=== PATIENT | female | born 1985 | race Two or more races ===

== ENCOUNTER 2024-01-29 16:21 | Emergency (ER) | payer MEDICAID ==
[~2024-01-29] VITALS: Ht 162.6 cm; Wt 79.5 kg
[2024-01-29 17:26] LABS: Urine Bacteria None Seen /hpf (None Seen)
[2024-01-29 17:34] LABS: Urine Blood 1+ /uL (Negative); Urine Clarity Turbid (Clear); Urine Color Yellow (Yellow); Urine Mucus FEW (None Seen); Urine Protein, UAD TRACE (Negative); Urine Specific Gravity 1.026 (1.001-1.035); Urine Urobilinogen Normal (Negative); Urine WBC 13 /hpf (0 - 5); Urine pH 5.5 (5.0-9.0)
[2024-01-29] MEDS: KETOROLAC TROMETH 60MG/2ML VIAL IM ONE (17:45)
[2024-01-29 17:46] VITALS: BP 126/78; PULSE 71; RESP 20; TEMP 97.6; O2SAT 100
[2024-01-29] MEDS: HYDROcodone-ACET 10/325MG TAB PO ONE (17:46)
[2024-01-29] MEDS ORDERED: HYDR-4902 PO (18:24)
[2024-01-29] MEDS ORDERED: CIPR-173 PO (18:24)
[2024-01-29] MEDS ORDERED: IBUP-1455 PO (18:24)
[2024-01-29] MEDS: CIPROFLOXACIN HCL 500 MG TAB PO ONE (18:45)
== END 2024-01-29 18:48 | disposition home or self-care (01) ==
LOC: EDBD 16:21 → ER 16:21
DX: N12 Tubulo-interstitial nephritis, not specified as acute or chronic (principal)
CPT/HCPCS: 81001; 96372; 99283; J1885

== ENCOUNTER 2024-10-05 17:18 | Inpatient (IN) | payer MEDICAID ==
[~2024-10-05] VITALS: Ht 165.1 cm; Wt 79.7 kg
[~2024-10-05 17:18] MED LIST: CIPR-173 PO; HYDR-4902 PO; IBUP-1455 PO
[2024-10-05 18:07] LABS: Urine Bacteria None Seen /hpf (None Seen)
[2024-10-05 18:22] LABS: Urine Blood 3+ /uL (Negative); Urine Clarity Turbid (Clear); Urine Color Colorless (Yellow); Urine Protein, UAD TRACE (Negative); Urine Specific Gravity 1.015 (1.001-1.035); Urine Squamous Epithelial Cell FEW /hpf (<5); Urine Urobilinogen Normal (Negative); Urine WBC 20 /HPF (0-5)
--- NOTE | 2024-10-05 18:23 | ED.PDOC ---
History of Present Illness HPI Comments 39F presents to the ER w/ prior Hx of and Tubal Ligation which may be associated to the c/c of ABD pain. Pt reports on having RUQ pain which radiates to the back which started at 2300 last night. Pt notes that she is feeling bloated and is gassy. Family Hx of HTN. Denies chills, fever, N/V/D, SOB, CP or other associated symptom's, modifiers, or recent injuries or sick contact at this time. Chief Complaint: Abdominal Pain Time Seen by MD: 17:55 Reviewed Notes: Nurses Notes, Medications, Allergies Home Meds Active Scripts Hydrocodone-Acetaminophen (Hydrocodone Bitartrate/AC 5-325 mg) 1 Tab Tab, 1 TAB PO Q6HP PRN, #15 TAB Prov:ALTON OLIVEIRA PAC 01/29/24 Ibuprofen Micronized (Ibuprofen) 800 Mg Tab, 800 MG PO Q8HP PRN, #20 TAB Prov:ALTON OLIVEIRA PAC 01/29/24 Ciprofloxacin Hcl (Cipro) 500 Mg Tab, 1 TAB PO BID for 7 Days, #14 TAB Prov:ALTON OLIVEIRA PAC 01/29/24 Information Source: Patient Mode of Arrival: Ambulatory Severity: Moderate Timing: Hours Duration: Since onset, Hours Prehospital treatment: None Past Medical History PAST MEDICAL HISTORY: Denies Surgical History: , Tubal Ligation EQUIPMENT SERVICE ASSOCIATE History: No Pertinent EQUIPMENT SERVICE ASSOCIATE History Family History Family History: Reviewed,noncontributory to illness, Family hx of HTN Social History Smoker: Non-Smoker Alcohol: Denies ETOH Use Drugs: Denies Drug Use Lives In: Home Constitutional: denies: chills, diaphoresis, fatigue, fever, malaise, sweats, weakness, others EENTM: denies: blurred vision, double vision, ear bleeding, ear discharge, ear drainage, ear pain, ear ringing, eye pain, eye redness, hearing loss, mouth pain, mouth swelling, nasal discharge, nose bleeding, nose congestion, nose pain, photophobia, tearing, throat pain, throat swelling, voice changes, others Respiratory: denies: cough, hemoptysis, orthopnea, SOB at rest, shortness of breath, SOB with excertion, stridor, wheezing, others Cardiovascular: denies: chest pain, dizzy spells, diaphoresis, Dyspnea on exertion, edema, irregular heart beat, left arm pain, lightheadedness, palpitations, PND, syncope, others Gastrointestinal: reports: abdominal pain; denies: abdomen distended, blood str eaked bowels, constipated, diarrhea, dysphagia, difficulty swallowing, hematemesis, melena, nausea, poor appetite, poor fluid intake, rectal bleeding, rectal pain, vomiting, others Genitourinary: denies: abnormal vagina bleeding, burning, dyspareunia, dysuria, flank pain, frequency, hematuria, incontinence, pain, , vagina discharge, urgency, others Neurological: denies: dizziness, fainting, headache, left sided numbness, left sided weakness, numbness, paresthesia, pre-existing deficit, right sided numbness, right sided weakness, seizure, speech problems, tingling, tremors, weakness, others Musculoskeletal: denies: back pain, gout, joint pain, joint swelling, muscle pain, muscle stiffness, neck pain, others Integumetry: denies: bruises, change in color, change in hair/nails, dryness, laceration, lesions, lumps, rash, wounds, others Allergic/Immunocompromised: denies: Difficulty Healing, Frequent Infections, Hives, Itching, others Hematologic/Lymphatic: denies: anemia, blood clots, easy bleeding, easy bruising, swollen glands, others Endocrine: denies: excessive hunger, excessive sweating, excessive thirst, excessive urination, flushing, intolerance to cold, intolerance to heat, unexplained weight gain, unexplained weight loss, others Psychiatric: denies: anxiety, bipolar disorder, depression, hopeless, panic disorder, schizophrenia, sleepless, suicidal, others All Other Systems: Reviewed and Negative Physical Exam General Appearance: Moderate Distress HEENT: Normal ENT Inspection, Pharynx Normal, TMs Normal Neck: Full Range of Motion, Non-Tender, Normal, Normal Inspection Respiratory: Chest Non-Tender, Lungs Clear, No Accessory Muscle Use, No Respiratory Distress, Normal Breath Sounds Cardiovascular: No Edema, No JVD, No Murmur, No Gallop, Normal Peripheral Pulses, Regular Rate/Rhythm Breast Exam: Deferred Gastrointestinal: No Organomegaly, No Pulsatile Mass, Normal Bowel Sounds, RUQ, Soft, Tenderness Genitalia: Deferred Pelvic: Deferred Rectal: Deferred Extremities: No calf tenderness, Normal capillary refill, Normal inspection, Normal range of motion, Non-tender, No pedal edema Musculoskeletal : Apperance: Normal Neurologic: Alert, gas or water meter installer II-XII nml as Tested, No Motor Deficits, Normal Affect, Normal Mood, No Sensory Deficits Cerebellar Function: Normal Reflexes: Normal Skin: Dry, Normal Color, Warm Lymphatic: No Adenopathy Was a procedure done? Was a procedure done?: No Differential Dx Considerations may include: Cholelithiasis, gastritis, generalized weakness, UTI X-Ray, Labs, Meds, VS Vital Signs Date Time Temp Pulse Resp B/P (MAP) Pulse Ox O2 Delivery O2 Flow Rate FiO2 10/05/24 19:02 80 18 119/74 10/05/24 18:38 80 16 99 Room Air 10/05/24 18:38 98.4 80 16 119/74 (89) 99 98.4 10/05/24 17:38 97.9 83 20 132/90 (104) 97 Lab Test 10/05/24 18:14 10/05/24 17:35 Range/Units White Blood Count 9.4 4.4-10.8 10^3/uL Red Blood Count 4.42 4.0-5.20 10^6/uL Hemoglobin 12.5 12.2-16.2 g/dL Hematocrit 37.0 36.0-46.0 % Mean Corpuscular Volume 83.8 80.0-100.0 fL Mean Corpuscular Hemoglobin 28.2 28.0-32.0 pg Mean Corpuscular Hemoglobin Concent 33.7 32.0-36.0 g/dL Red Cell Distribution Width 15.3 H 11.8-14.3 % Platelet Count 281 140-450 10^3/uL Mean Platelet Volume 8.9 6.9-10.8 fL Neutrophils (%) (Auto) 62.6 37.0-80.0 % Lymphocytes (%) (Auto) 26.6 10.0-50.0 % Monocytes (%) (Auto) 7.2 0.0-12.0 % Eosinophils (%) (Auto) 2.8 0.0-7.0 % Basophils (%) (Auto) 0.8 0.0-2.0 % Neutrophils # (Auto) 5.9 1.6-8.6 10 ^3/uL Lymphocytes # (Auto) 2.5 0.4-5.4 10 ^3/uL Monocytes # (Auto) 0.7 0-1.3 10 ^3/uL Eosinophils # (Auto) 0.3 0-0.8 10 ^3/uL Basophils # (Auto) 0.1 0-0.2 10 ^3/uL Nucleated Red Blood Cells 0.0 % Sodium Level 140 136-145 mmol/L Potassium Level 3.9 3.5-5.1 mmol/L Chloride Level 108 H 98-107 mmol/L Carbon Dioxide Level 26 20-31 mmol/L Anion Gap 6 5-15 Blood Urea Nitrogen 10 9-23 mg/dL Creatinine 0.77 0.550-1.02 mg/dL Glomerular Filtration Rate Calc 100 >90 mL/min BUN/Creatinine Ratio 13.0 10.0-20.0 Serum Glucose 96 74-106 mg/dL Calcium Level 9.7 8.7-10.4 mg/dL Total Bilirubin 0.3 0.2-1.0 mg/dL Aspartate Amino Transferase (AST) 17 13-40 U/L Alanine Aminotransferase (ALT) 24 7-40 U/L Alkaline Phosphatase 115 46-116 U/L Total Protein 7.1 5.7-8.2 g/dL Albumin 4.3 3.2-4.8 g/dL Lipase 38 12-53 U/L Urine Color Colorless Yellow Urine Clarity Turbid H Clear Urine pH 6.0 5.0-9.0 Urine Specific [place] 1.015 1.001-1.035 Urine Protein Trace H Negative Urine Ketones Negative Negative Urine Blood 3+ H Negative /uL Urine Nitrite Negative Negative Urine Bilirubin Negative Negative Urine Urobilinogen Normal Negative mg/dL Urine Leukocyte Esterase 1+ Negative /uL Urine RBC 1328 0 - 4 /hpf Urine Microscopic WBC 20 H 0-5 /HPF Urine Squamous Epithelial Cells Few <5 /hpf Urine Bacteria None seen None Seen /hpf Urine Glucose Normal Normal mg/dL Current Medications Medications (Trade) Dose Ordered Sig/Terence Route Start Time Stop Time Status Last Admin Ondansetron HCl (Zofran) 4 mg ONCE ONCE IV 10/05/24 18:15 10/05/24 18:16 DC 10/05/24 19:01 Morphine Sulfate 4 mg ONCE ONCE IV 10/05/24 18:15 10/05/24 18:16 DC 10/05/24 19:02 Sodium Chloride 500 ml @ 500 mls/hr Q1H ONCE IVB 10/05/24 18:15 10/05/24 19:14 10/05/24 18:49 Pantoprazole Sodium (Protonix) 40 mg ONCE ONCE IV 10/05/24 18:15 10/05/24 18:16 DC 10/05/24 19:02 Ultrasound of the gallbladder shows:IMPRESSION: 1. Sludge in the gallbladder. No cholelithiasis. Negative ultrasound Manzanares's sign. 2. 13.8 cm liver with findings suggesting steatosis The urine test is positive for UTI The patient was given an IV Hep-Lock and given normal saline at a 500 cc bolus The patient was given morphine 4 mg IV push for the pain The patient was given Zofran 4 mg IV push for the nausea The patient was given Protonix 40 mg IV push. The chemistry panel is within normal limits The CBC is within normal limits At this time, the patient was being admitted Images Reviewed?: Images reviewed and evaluated by me Time of 1ST Reevaluation: 18:25 Reevaluation 1ST: Unchanged Patient Education/Counseling: Diagnosis, Treatment, Prognosis Family Education/Counseling: No Family Present Departure 1 Departure Time of Disposition: 19:05 Impression: Primary Impression: Intractable abdominal pain Additional Impression: Cholelithiasis Qualified Codes: K80.20 - Calculus of gallbladder without cholecystitis without obstruction Disposition: ADMITTED INPATIENT Admit to: Med Surg Condition: Fair Critical Care Note Critical Care Time?: No Stability Stability form required: Yes Unstable for transfer: ED Physician Assesment (Clinical assesment) Heart Score Heart Score: Heart Score Response (Comments) Value History N/A 0 EKG N/A 0 Age N/A 0 Risk Factors N/A 0 Troponin N/A 0 Total 0 I personally scribed for ROSETTE SHERIDAN MD ([email or web address]) on 10/05/24 at 18:23. Electronically submitted by Marciano Mendoza ([email or web address]). ROSETTE SHERIDAN MD Oct 05, 2024 18:23
[2024-10-05 18:30] LABS: Basophils # (auto) 0.1 10 ^3/uL (0-0.2); Basophils % (auto) 0.8 % (0.0-2.0); Eosinophils # (auto) 0.3 10 ^3/uL (0-0.8); Eosinophils % (auto) 2.8 % (0.0-7.0); Hemoglobin 12.5 g/dL (12.2-16.2); Lymphocytes # (auto) 2.5 10 ^3/uL (0.4-5.4); Lymphocytes % (auto) 26.6 % (10.0-50.0); Mean Corpuscular Hemoglobin 28.2 pg (28.0-32.0); Mean Corpuscular Hgb Conc. 33.7 g/dL (32.0-36.0); Mean Corpuscular Volume 83.8 fL (80.0-100.0); Monocytes # (auto) 0.7 10 ^3/uL (0-1.3); Monocytes % (auto) 7.2 % (0.0-12.0); Neutrophils # (auto) 5.9 10 ^3/uL (1.6-8.6); Neutrophils % (auto) 62.6 % (37.0-80.0); Platelet Count (auto) 281 10^3/uL (140-450); Red Blood Cells 4.42 10^6/uL (4.0-5.20); Red Cell Distribution Width 15.3 % (11.8-14.3); White Blood Cell 9.4 10^3/uL (4.4-10.8)
[2024-10-05 18:43] LABS: Alanine Aminotransferase 24 U/L (7-40); Albumin 4.3 g/dL (3.2-4.8); Alkaline Phosphatase 115 U/L (46-116); Anion Gap 6 (5-15); Aspartate Aminotransferase 17 U/L (13-40); Blood Urea Nitrogen 10 mg/dL (9-23); Calcium 9.7 mg/dL (8.7-10.4); Carbon Dioxide 26 mmol/L (20-31); Glucose 96 mg/dL (74-106); Lipase 38 U/L (12-53); Potassium 3.9 mmol/L (3.5-5.1); Sodium 140 mmol/L (136-145)
[2024-10-05 18:44] LABS: Total Protein 7.1 g/dL (5.7-8.2)
[2024-10-05 18:45] LABS: Bilirubin, Total 0.3 mg/dL (0.2-1.0); Chloride 108 mmol/L (98-107)
--- NOTE | 2024-10-05 18:48 | DVH ---
INDICATION: pain TECHNIQUE: Multiple real-time sonographic images of the abdomen were obtained. COMPARISON: None FINDINGS: Slight increased echogenicity to the hepatic parenchyma suggesting steatosis. The liver emma sures 13.8 cm. No intrahepatic biliary ductal dilatation is noted. The gallbladder wall measures 0.17 cm and is unremarkable. No gallstones. Small amount of sludge i n the gallbladder. sludge is seen. The common duct measures 0.42 cm and is unremarkable. No pericho lecystic fluid is noted. Negative ultrasound Manzanares's sign The right kidney measures 10.9 cm. No hydronephrosis. The pancreas appears normal The visualized portions of the IVC and aorta are grossly unremarkable. IMPRESSION: 1. Sludge in the gallbladder. No cholelithiasis. Negative ultrasound Manzanares's sign. 2. 13.8 cm liver with findings suggesting steatosis
[2024-10-05] MEDS: SODIUM CHLORIDE 0.9% 500 ML IVB ONE (18:49)
[2024-10-05] MEDS: ONDANSETRON HCL 4 MG/2 ML VIAL IV ONE (19:01)
[2024-10-05] MEDS: PANTOPRAZOLE 40 MG/10 ML VIAL INJ IV ONE (19:02)
[2024-10-05] MEDS: MORPHINE SULFATE 4 MG/ML SYR/VIAL IV ONE (19:02)
--- NOTE | 2024-10-05 21:47 | DVHHPRES ---
History of Present Illness Resident Creating Document: JOSEPH RAYA RESIDENT History of Present Illness 39-year-old female with no significant past medical history came in due to abdominal pain. According to the patient, pain has been ongoing since yesterday afternoon and radiating to her back, pain is intermittent, burning and 8/10 at onset. There is generalized abdominal tenderness to palpation, most prominent in the right flank. Pain is worsened with deep breathing and improves with applying mechanical pressure. Pain is relieved with Advil. Denies having similar symptoms in the past. On review of systems patient is complaining of fatigue, shortness of breath, urinary frequency. UA showed 3+ blood, 1+ leukocyte esterase. CT abdomen pelvis showed 4-5 mm calculus in the pelvis on the left may represent a distal left ureteral calculus, appendix visualized and appears normal. Past Medical History denies Past Surgical History section Smoke: No ALCOHOL: none Drugs: None Lives: with Family Review of Systems Constitutional: Yes: Malaise; No: Fever, Chills, Sweats, Weakness, Other Eyes: No: Pain, Vision change, Conjunctivae inflammation, Eyelid inflammation, Other, Redness ENT: Throat pain; No: Ear pain, Ear discharge, Nose pain, Nose discharge, Nose congestion, Mouth pain, Mouth swelling, Throat swelling, Other Respiratory: Shortness of breath; No: Cough, Dry, SOB with excertion, Wheezing, Hemoptysis, Pleuritic Pain, Sputum, Wheezing, Other Cardiovascular: No: Chest Pain, Palpitations, Orthopnea, Paroxysmal Noc. Dyspnea, Edema, Lt Headedness, Other Gastrointestinal: No: Nausea, Vomiting, Abdominal Pain, Diarrhea, Constipation, Melena, Hematochezia, Other Genitourinary: No Dysuria; Frequency; No Incontinence, No Hematuria, No Retention, No Other Musculoskeletal: No: other, neck pain, shoulder pain, arm pain, back pain, hand pain, leg pain, foot pain Skin: No: Rash, Lesions, Jaundice, Bruising, Other Neurological: No: Weakness, Numbness, Incoordination, Change in speech, Confusion, Seizures, Other Allergies: Coded Allergies: NO KNOWN ALLERGIES (Unverified , 10/05/24) Exam Vital Signs Vital Signs Date Time Temp Pulse Resp B/P (MAP) Pulse Ox O2 Delivery O2 Flow Rate FiO2 10/05/24 20:38 98.2 87 18 118/70 (86) 100 98.2 10/05/24 18:38 Room Air General Appearance: Alert, Oriented X3, Cooperative, No acute distress HEENT: Atraumatic, PERRLA, EOMI, Mucous membr. moist/pink Respiratory: Clear to auscultation, Normal air movement Cardiovascular: Regular rate, Normal S1, Normal S2 Abdominal: Normal bowel sounds, Soft, Other (Tenderness to palpation) Extremities: No clubbing, No edema Skin: No rashes, No breakdown, No significant lesion Neuro: Normal gait, Normal speech, Strength at 5/5 X4 ext, Normal tone, Sensation intact Psych/Mental Status: Mental status NL, Mood NL Labs/Xrays Labs Test 10/05/24 18:14 10/05/24 17:35 Range/Units White Blood Count 9.4 4.4-10.8 10^3/uL Red Blood Count 4.42 4.0-5.20 10^6/uL Hemoglobin 12.5 12.2-16.2 g/dL Hematocrit 37.0 36.0-46.0 % Mean Corpuscular Volume 83.8 80.0-100.0 fL Mean Corpuscular Hemoglobin 28.2 28.0-32.0 pg Mean Corpuscular Hemoglobin Concent 33.7 32.0-36.0 g/dL Red Cell Distribution Width 15.3 H 11.8-14.3 % Platelet Count 281 140-450 10^3/uL Mean Platelet Volume 8.9 6.9-10.8 fL Neutrophils (%) (Auto) 62.6 37.0-80.0 % Lymphocytes (%) (Auto) 26.6 10.0-50.0 % Monocytes (%) (Auto) 7.2 0.0-12.0 % Eosinophils (%) (Auto) 2.8 0.0-7.0 % Basophils (%) (Auto) 0.8 0.0-2.0 % Neutrophils # (Auto) 5.9 1.6-8.6 10 ^3/uL Lymphocytes # (Auto) 2.5 0.4-5.4 10 ^3/uL Monocytes # (Auto) 0.7 0-1.3 10 ^3/uL Eosinophils # (Auto) 0.3 0-0.8 10 ^3/uL Basophils # (Auto) 0.1 0-0.2 10 ^3/uL Nucleated Red Blood Cells 0.0 % Sodium Level 140 136-145 mmol/L Potassium Level 3.9 3.5-5.1 mmol/L Chloride Level 108 H 98-107 mmol/L Carbon Dioxide Level 26 20-31 mmol/L Anion Gap 6 5-15 Blood Urea Nitrogen 10 9-23 mg/dL Creatinine 0.77 0.550-1.02 mg/dL Glomerular Filtration Rate Calc 100 >90 mL/min BUN/Creatinine Ratio 13.0 10.0-20.0 Serum Glucose 96 74-106 mg/dL Calcium Level 9.7 8.7-10.4 mg/dL Total Bilirubin 0.3 0.2-1.0 mg/dL Aspartate Amino Transferase (AST) 17 13-40 U/L Alanine Aminotransferase (ALT) 24 7-40 U/L Alkaline Phosphatase 115 46-116 U/L Total Protein 7.1 5.7-8.2 g/dL Albumin 4.3 3.2-4.8 g/dL Lipase 38 12-53 U/L Urine Color Colorless Yellow Urine Clarity Turbid H Clear Urine pH 6.0 5.0-9.0 Urine Specific [place] 1.015 1.001-1.035 Urine Protein Trace H Negative Urine Ketones Negative Negative Urine Blood 3+ H Negative /uL Urine Nitrite Negative Negative Urine Bilirubin Negative Negative Urine Urobilinogen Normal Negative mg/dL Urine Leukocyte Esterase 1+ Negative /uL Urine RBC 1328 0 - 4 /hpf Urine Microscopic WBC 20 H 0-5 /HPF Urine Squamous Epithelial Cells Few <5 /hpf Urine Bacteria None seen None Seen /hpf Urine Glucose Normal Normal mg/dL Assessment/Plan Assessment/Plan 4-5 mm distal left ureteral calculus Acute complicated UTI - CT abdomen pelvis: Appendix visualized and appears normal. No right renal calculi or ureteral calculus. No calculus in the bladder on the right. 4-5 mm calculus in the pelvis on the left may represent a distal left ureteral calculus refer to series 2 image 87. This may represent a calcified phlebolith. - IV ceftriaxone - IV NS 500 mL bolus, IV NS 125 cc/hour - IV mannitol - tamsulosin 0.4 mg - strain urine - IV Zofran 4 mg Hepatic steatosis - abdominal USG: Sludge in the gallbladder. No cholelithiasis. Negative ultrasound Manzanares sign. 13.8 cm liver with findings suggesting steatosis. - monitor PUD prophylaxis: protonix 40mg DVT prophylaxis: SCDs Goals of care: Full code, discussed for >16 minutes on 10/05/2024 Plan discussed with patient Plan discussed with Dr. Marcial Plan discussed with: Patient, Spouse, Other (RN) Date of Service: Oct 05, 2024 Billing Provider: SANTINO MARCIAL MD Common Visit Codes: 99072-[id number] INP/OBS CARE (HIGH) JOSEPH RAYA RESIDENT Oct 05, 2024 21:47 SANTINO MARCIAL MD Oct 07, 2024 00:29
[2024-10-05 21:58] VITALS: BP 110/76; PULSE 64; RESP 18; TEMP 98.9; O2SAT 100
[2024-10-05 22:32] VITALS: BP 117/76; PULSE 64; PULSE 69; RESP 18; TEMP 97.8; O2SAT 100
[2024-10-05 22:47] LABS: INR 1.01 (0.9-1.15); Prothrombin Time 10.7 sec (9.3-11.8)
--- NOTE | 2024-10-05 22:48 | DVH ---
CHEST RADIOGRAPH Indication: sob Technique: Single frontal view of the chest was obtained Comparison: None FINDINGS: Lines and Tubes: None Lungs: Clear Pleura: No effusion. No pneumothorax. Cardiomediastinal contours: Unremarkable Bones: Unremarkable IMPRESSION: Clear lungs.
--- NOTE | 2024-10-05 23:03 | DVH ---
Exam: CT CT AB PEL WO CON-NO ORAL OR IV History: nephrolithiasis vs appendicitis Comparison Study: None available at time of dictation. TECHNIQUE: Multidetector CT of the abdomen was performed from lung bases to pubic symphysis. Imaging was performed without IV contrast. Axial, coronal and sagittal multiplanar reformats were obtained fr om the axial data set by the technologist. Radiation Dose Information: CT Dose: CTDI volume is 9.46 mGy. Dose-length product is 577.44 mGy*cm FINDINGS: Evaluation of solid organs is limited due to lack of intravenous contrast use. Findings: Lung Bases: No acute or significant lung base finding. Normal heart size. No pleural or pericardial effusion. Liver: The liver is normal in size. No focal lesions. Gallbladder and Biliary Tree: Questionable small gallstone (8-9mm) in the neck of the gallbladder ref erence series 2, image 31 Spleen: Unremarkable Pancreas: The pancreas is grossly normal in appearance. Adrenal Glands: Unremarkable Kidneys: Kidneys are grossly normal without calculi or hydronephrosis. Bladder: Grossly unremarkable for degree of distention. Bowel: The stomach is grossly normal in appearance. Small bowel and colon are normal in caliber and d istribution. The appendix is visualized; and appears normal Ascites: Absent Lymphadenopathy: No mesenteric, retroperitoneal or periportal lymphadenopathy. Abdominal Wall and Mesentery: Unremarkable. Vasculature: The visualized abdominal aorta is normal in size and caliber. Evaluation of abdominal a nd pelvic vessels is limited due to lack of intravenous contrast. Pelvic Organs: Unremarkable Musculoskeletal: No aggressive focal bony lesions, acute fractures or dislocation. Soft tissues: Unremarkable IMPRESSION: 1. Appendix visualized and appears normal 2. No right renal calculi or ureteral calculus. No calculus in the bladder on the right. 3. 4-5 mm calculus in the pelvis on the left may represent a distal left ureteral calculus refer to jv barajas 2 image 87. This may represent a calcified phlebolith. 4. Radiation optimization: All CT scans at this facility use at least one of these dose optimization techniques: automated exposure control mA and/or kV adjustment per patient size (includes targeted e xams where dose is matched to clinical indication) or iterative reconstruction.
[2024-10-05 23:24] LABS: Amphetamine Screen, Urine Neg (NEGATIVE); Barbiturate Scree,Urine Neg (NEGATIVE); Opiate Scree,Urine Neg (NEGATIVE); Phencyclidine Screen, Urine Neg (NEGATIVE)
[2024-10-05 23:25] LABS: Benzodiazephine Screen, Urine Neg (NEGATIVE); Cannabinoid Screen, Urine Neg (NEGATIVE); Cocaine Screen, Urine Neg (NEGATIVE)
[2024-10-06] VITALS (7 sets, daily range): BP systolic 111–136; BP diastolic 66–82; PULSE 69–94; RESP 14–20; TEMP 97.8–98.1; O2SAT 94–100
[2024-10-06] MEDS: TAMSULOSIN HYDROCHLORIDE 0.4 MG CAP PO ONE (01:12)
[2024-10-06] MEDS: SODIUM CHLORIDE 0.9% 1,000 ML IV SCH (01:12)
[2024-10-06] MEDS: MANNITOL FTV 25% 12.5 GM/50 ML 50 ML IV ONE (01:12)
[2024-10-06] MEDS: cefTRIAXone 1GM/50ML D5W 50 ML IV ONE (01:27)
[2024-10-06] MEDS: ACETAMINOPHEN 325 MG TAB PO PRN (10:15)
[2024-10-06] MEDS: PANTOPRAZOLE 40 MG/10 ML VIAL INJ IV SCH (10:15)
[2024-10-06] MEDS: IBUPROFEN 800 MG TAB PO PRN (16:33)
[2024-10-06] MEDS: TAMSULOSIN HYDROCHLORIDE 0.4 MG CAP PO SCH (16:33)
--- NOTE | 2024-10-06 17:51 | DVHINCON2 ---
Date of service: Oct 06, 2024 Referring Physician Nathaly Reason for Consultation possible ureteral stone History of Present Illness c/o abdominal and right flank pain on admission;CT says possible stone vs phlebolith left pelvis;denies prior stones,hematuria, UTI 6 months ago Past Medical History reviewed Past Surgical History reviewed Family History: Patient reports no known family medical history. Allergies: Coded Allergies: NO KNOWN ALLERGIES (Unverified , 10/05/24) Home Meds Active Scripts Hydrocodone-Acetaminophen (Hydrocodone Bitartrate/AC 5-325 mg) 1 Tab Tab, 1 TAB PO Q6HP PRN, #15 TAB Prov:ALTON OLIVEIRA PAC 01/29/24 Ibuprofen Micronized (Ibuprofen) 800 Mg Tab, 800 MG PO Q8HP PRN, #20 TAB Prov:ALTON OLIVEIRA PAC 01/29/24 Ciprofloxacin Hcl (Cipro) 500 Mg Tab, 1 TAB PO BID for 7 Days, #14 TAB Prov:ALTON OLIVEIRA PAC 01/29/24 Current Medications Current Medications Medications (Trade) Dose Ordered Sig/Terence Route PRN Reason Start Time Stop Time Status Last Admin Acetaminophen (Tylenol Tablet) 650 mg Q6HP PRN PO PAIN SCALE 1-3 OR TEMP>100.4 10/05/24 21:45 10/06/24 10:15 Pantoprazole Sodium (Protonix) 40 mg DAILY IV 10/06/24 10:00 10/06/24 10:15 Sodium Chloride 1,000 ml @ 125 mls/hr Q8H IV 10/05/24 22:30 10/06/24 10:30 Ceftriaxone Sodium 50 ml @ 100 mls/hr DAILY@0000 IV 10/07/24 00:00 Tamsulosin HCl (Flomax) 0.4 mg QPM PO 10/06/24 18:00 10/06/24 16:33 Ibuprofen (Motrin Tablet) 800 mg Q8HP PRN PO MODERATE PAIN (4-6 PAIN SCALE) 10/06/24 16:30 10/06/24 16:33 Review of Systems reviewed Vital Signs Vital Signs Date Time Temp Pulse Resp B/P (MAP) Pulse Ox O2 Delivery O2 Flow Rate FiO2 10/06/24 17:33 98.0 10/06/24 17:00 81 19 120/76 (91) 98 10/06/24 07:30 Room Air* 0 21 Labs/Diagnostic Data Labs Test 10/05/24 18:14 10/05/24 17:35 Range/Units White Blood Count 9.4 4.4-10.8 10^3/uL Red Blood Count 4.42 4.0-5.20 10^6/uL Hemoglobin 12.5 12.2-16.2 g/dL Hematocrit 37.0 36.0-46.0 % Mean Corpuscular Volume 83.8 80.0-100.0 fL Mean Corpuscular Hemoglobin 28.2 28.0-32.0 pg Mean Corpuscular Hemoglobin Concent 33.7 32.0-36.0 g/dL Red Cell Distribution Width 15.3 H 11.8-14.3 % Platelet Count 281 140-450 10^3/uL Mean Platelet Volume 8.9 6.9-10.8 fL Neutrophils (%) (Auto) 62.6 37.0-80.0 % Lymphocytes (%) (Auto) 26.6 10.0-50.0 % Monocytes (%) (Auto) 7.2 0.0-12.0 % Eosinophils (%) (Auto) 2.8 0.0-7.0 % Basophils (%) (Auto) 0.8 0.0-2.0 % Neutrophils # (Auto) 5.9 1.6-8.6 10 ^3/uL Lymphocytes # (Auto) 2.5 0.4-5.4 10 ^3/uL Monocytes # (Auto) 0.7 0-1.3 10 ^3/uL Eosinophils # (Auto) 0.3 0-0.8 10 ^3/uL Basophils # (Auto) 0.1 0-0.2 10 ^3/uL Nucleated Red Blood Cells 0.0 % Prothrombin Time 10.7 9.3-11.8 sec Prothrombin Time INR 1.01 0.9-1.15 Sodium Level 140 136-145 mmol/L Potassium Level 3.9 3.5-5.1 mmol/L Chloride Level 108 H 98-107 mmol/L Carbon Dioxide Level 26 20-31 mmol/L Anion Gap 6 5-15 Blood Urea Nitrogen 10 9-23 mg/dL Creatinine 0.77 0.550-1.02 mg/dL Glomerular Filtration Rate Calc 100 >90 mL/min BUN/Creatinine Ratio 13.0 10.0-20.0 Serum Glucose 96 74-106 mg/dL Calcium Level 9.7 8.7-10.4 mg/dL Total Bilirubin 0.3 0.2-1.0 mg/dL Aspartate Amino Transferase (AST) 17 13-40 U/L Alanine Aminotransferase (ALT) 24 7-40 U/L Alkaline Phosphatase 115 46-116 U/L Total Protein 7.1 5.7-8.2 g/dL Albumin 4.3 3.2-4.8 g/dL Lipase 38 12-53 U/L Urine Color Colorless Yellow Urine Clarity Turbid H Clear Urine pH 6.0 5.0-9.0 Urine Specific [place] 1.015 1.001-1.035 Urine Protein Trace H Negative Urine Ketones Negative Negative Urine Blood 3+ H Negative /uL Urine Nitrite Negative Negative Urine Bilirubin Negative Negative Urine Urobilinogen Normal Negative mg/dL Urine Leukocyte Esterase 1+ Negative /uL Urine RBC 1328 0 - 4 /hpf Urine Microscopic WBC 20 H 0-5 /HPF Urine Squamous Epithelial Cells Few <5 /hpf Urine Bacteria None seen None Seen /hpf Urine Glucose Normal Normal mg/dL Urine Opiates Screen Neg NEGATIVE Urine Fentanyl Screen Neg NEGATIVE Urine Barbiturates Screen Neg NEGATIVE Urine Phencyclidine Screen Neg NEGATIVE Urine Amphetamines Screen Neg NEGATIVE Urine Benzodiazepines Screen Neg NEGATIVE Urine Cocaine Screen Neg NEGATIVE Urine Cannabinoids Screen Neg NEGATIVE Assessment calcification left pelvis most likely phlebolith not stone Plan/Recommendation no intervention Plan discussed with: Patient DONAVON ERVIN MD Oct 06, 2024 17:51
[2024-10-07] MEDS: cefTRIAXone 1GM/50ML D5W 50 ML IV SCH
[2024-10-07 01:00] VITALS: BP 109/65; PULSE 75; RESP 18; TEMP 98.1; O2SAT 96
[2024-10-07 05:00] VITALS: BP 110/70; PULSE 75; RESP 20; TEMP 98.3; O2SAT 98
[2024-10-07 05:16] LABS: Rapid Influenza A Negative (Negative); Rapid Influenza B Negative (Negative)
[2024-10-07 05:17] LABS: COVID19 ANTIGEN SOFIA FIA NEGATIVE (NEGATIVE)
[2024-10-07 09:00] VITALS: BP 116/65; PULSE 72; RESP 16; TEMP 97.3; O2SAT 97
[2024-10-07 13:00] VITALS: BP 109/65; PULSE 78; RESP 16; TEMP 98.4; O2SAT 97
[2024-10-07] MEDS: DOCUSATE SOD 100 MG CAP PO ONE (16:00)
[2024-10-07 17:00] VITALS: BP 110/60; PULSE 87; RESP 17; TEMP 97.4; O2SAT 97
[2024-10-07] MEDS ORDERED: LEVO500T91 PO (17:47)
--- NOTE | 2024-10-07 17:47 | DVHDS2 ---
Discharge Summary Date of Admission Oct 05, 2024 at 21:45 Date of Discharge: Oct 07, 2024 Admitting Diagnosis 4-5 mm distal left ureteral calculus Acute complicated UTI Hepatic steatosis Labs/Diagnostic Data: Laboratory Results Test 10/07/24 03:50 10/05/24 18:14 10/05/24 17:35 Influenza Type A Antigen Negative (Negative) Influenza Type B Antigen Negative (Negative) SARS-CoV-2 Antigen (Rapid) Negative (NEGATIVE) White Blood Count 9.4 10^3/uL (4.4-10.8) Red Blood Count 4.42 10^6/uL (4.0-5.20) Hemoglobin 12.5 g/dL (12.2-16.2) Hematocrit 37.0 % (36.0-46.0) Mean Corpuscular Volume 83.8 fL (80.0-100.0) Mean Corpuscular Hemoglobin 28.2 pg (28.0-32.0) Mean Corpuscular Hemoglobin Concent 33.7 g/dL (32.0-36.0) Red Cell Distribution Width 15.3 % (11.8-14.3) Platelet Count 281 10^3/uL (140-450) Mean Platelet Volume 8.9 fL (6.9-10.8) Neutrophils (%) (Auto) 62.6 % (37.0-80.0) Lymphocytes (%) (Auto) 26.6 % (10.0-50.0) Monocytes (%) (Auto) 7.2 % (0.0-12.0) Eosinophils (%) (Auto) 2.8 % (0.0-7.0) Basophils (%) (Auto) 0.8 % (0.0-2.0) Neutrophils # (Auto) 5.9 10 ^3/uL (1.6-8.6) Lymphocytes # (Auto) 2.5 10 ^3/uL (0.4-5.4) Monocytes # (Auto) 0.7 10 ^3/uL (0-1.3) Eosinophils # (Auto) 0.3 10 ^3/uL (0-0.8) Basophils # (Auto) 0.1 10 ^3/uL (0-0.2) Nucleated Red Blood Cells 0.0 % Prothrombin Time 10.7 sec (9.3-11.8) Prothrombin Time INR 1.01 (0.9-1.15) Sodium Level 140 mmol/L (136-145) Potassium Level 3.9 mmol/L (3.5-5.1) Chloride Level 108 mmol/L (98-107) Carbon Dioxide Level 26 mmol/L (20-31) Anion Gap 6 (5-15) Blood Urea Nitrogen 10 mg/dL (9-23) Creatinine 0.77 mg/dL (0.550-1.02) Glomerular Filtration Rate Calc 100 mL/min (>90) BUN/Creatinine Ratio 13.0 (10.0-20.0) Serum Glucose 96 mg/dL (74-106) Calcium Level 9.7 mg/dL (8.7-10.4) Total Bilirubin 0.3 mg/dL (0.2-1.0) Aspartate Amino Transferase (AST) 17 U/L (13-40) Alanine Aminotransferase (ALT) 24 U/L (7-40) Alkaline Phosphatase 115 U/L (46-116) Total Protein 7.1 g/dL (5.7-8.2) Albumin 4.3 g/dL (3.2-4.8) Lipase 38 U/L (12-53) Urine Color Colorless (Yellow) Urine Clarity Turbid (Clear) Urine pH 6.0 (5.0-9.0) Urine Specific [place] 1.015 (1.001-1.035) Urine Protein Trace (Negative) Urine Ketones Negative (Negative) Urine Blood 3+ /uL (Negative) Urine Nitrite Negative (Negative) Urine Bilirubin Negative (Negative) Urine Urobilinogen Normal mg/dL (Negative) Urine Leukocyte Esterase 1+ /uL (Negative) Urine RBC 1328 /hpf (0 - 4) Urine Microscopic WBC 20 /HPF (0-5) Urine Squamous Epithelial Cells Few /hpf (<5) Urine Bacteria None seen /hpf (None Seen) Urine Glucose Normal mg/dL (Normal) Urine Opiates Screen Neg (NEGATIVE) Urine Fentanyl Screen Neg (NEGATIVE) Urine Barbiturates Screen Neg (NEGATIVE) Urine Phencyclidine Screen Neg (NEGATIVE) Urine Amphetamines Screen Neg (NEGATIVE) Urine Benzodiazepines Screen Neg (NEGATIVE) Urine Cocaine Screen Neg (NEGATIVE) Urine Cannabinoids Screen Neg (NEGATIVE) Other Laboratory Tests 10/05/24 18:14 Brief Hx & Hospital Course: This is a a 39 years old female with no significant past medical history come to emergency department because severe abdominal pain. Patient had intermittent burning pain 10/10 with flank pain. The patient was admitted. The patient was found to have complicated urinary tract infection with UA showed leukocyte esterase and nitrate.. CT abdomen pelvis showed 4 to 5 mm calculus in the pelvis on the left may represent a distal left ureteral calculus. The appendix was appear normal. The patient was given IV antibiotic Rocephin 1 g IV q.day. the patient also was given IV mannitol for stone expulsion. The patient was given pain medication. The patient was given Flomax. Urology see the patient. Dr. Willingham recommend KUB. KUB review showed no stone today. So I am going to discharge the patient home. Advised the patient to follow up with primary care physician 1-2 weeks. Follow up with urologist as outpatient per schedule if continuing to have pain. Activity as tolerated. Diet per home diet. Physical exam: HEENT: Normocephalic atraumatic pupils equal react to light and accommodation. Extraocular muscles intact, conjunctiva pink, oropharynx moist, no thrush, no exudate. Lymphatic: No lymphadenopathy Cardiovascular exam: S1, S2 was heard. No murmurs, rubs, gallops Lung: Clear on auscultation bilaterally, no wheeze, rale, rhonchi. GI: Abdominal soft, nondistended, nontenderness, positive bowel sounds. Extremity: No crepitus, cyanosis, edema. Pedal pulses present bilateral. Full range of motion. Skin: Normal turgor, no rash. Psych: Alert, oriented x3. Neurology: No focal deficits, cranial nerve II to XII grossly intact. This medical document was created using an electronic medical record system with [employer] direct computerized dictation system. Although this document has been carefully reviewed, there may still be some phonetic and typographical errors. These areas are purely typographical due to imperfections of the software programs, and do not reflect any compromise in the patient's medical care. Condition at Discharge: Stable Final Diagnosis/Problems List 4-5 mm distal left ureteral calculus Acute complicated UTI Hepatic steatosis Discharge Disposition: Home Discharge Statement: "Patient was advised to return to the ER or call 911 if any headaches, dizziness, shortness of breath, chest pain, abdominal pain, bleeding, fevers, or worsening of medical condition. Patient was counseled about treatment plan, medications, possible side effects, patientverbalized understanding. All questions were answered to the best of my ability. This discharge took greater then 30 minutes in planning, reviewing documentation, counseling the patient, and discussing with other team members." ASSESSMENT ASSESSMENT Assessment Date of Service: Oct 07, 2024 Billing Provider: JAMIE DOWNEY MD Common Visit Codes: [id number] DISCH DAY >30min JAMIE DOWNEY MD Oct 07, 2024 17:47
[2024-10-07] MEDS: HYDROcodone-ACET 5/325MG TAB PO ONE (18:32)
[2024-10-07 18:44] VITALS: TEMP 36.3
--- NOTE | 2024-10-07 19:57 | DVHPN2 ---
Subjective The patient is seen and examined at bedside. Still have flank pain. Reviewed: Care Plan, H&P, Labs, Medications, Previous Orders, Radiology Changes from previous H/P or p: No Changes Eyes: No Pain, No Vision change, No Conjunctivae inflammation, No Eyelid inflammation, No Other, No Redness ENT: No Ear pain, No Ear discharge, No Nose pain, No Nose discharge, No Nose congestion, No Mouth pain, No Mouth swelling; Throat pain; No Throat swelling, No Other Cardiovascular: No Chest Pain, No Palpitations, No Orthopnea, No Paroxysmal Noc. Dyspnea, No Edema, No Lt Headedness, No Other Respiratory: No Cough, No Dry; Shortness of breath; No SOB with excertion, No Wheezing, No Hemoptysis, No Pleuritic Pain, No Sputum, No Other Gastrointestinal: No Nausea, No Vomiting, No Abdominal Pain, No Diarrhea, No Constipation, No Melena, No Hematochezia, No Other Genitourinary: No Dysuria; Frequency; No Incontinence, No Hematuria, No Retention, No Other Musculoskeletal: No other, No neck pain, No shoulder pain, No arm pain, No back pain, No hand pain, No leg pain, No foot pain Skin: No Rash, No Lesions, No Jaundice, No Bruising, No Other Objective Vitals Vital Signs Date Time Temp Pulse Resp B/P (MAP) Pulse Ox O2 Delivery O2 Flow Rate FiO2 10/07/24 18:44 36.3 10/07/24 17:00 87 17 110/60 (77) 97 10/07/24 07:30 Room Air* 0 21 Intake/Output Intake and Output 10/07/24 07:00 Intake Total 2860 ml Balance 2860 ml Intake Oral 2010 ml IV Total 850 ml # Voids 4 General Appearance: Alert, Oriented X3, Cooperative, No acute distress HEENT: Atraumatic, PERRLA, EOMI, Mucous membr. moist/pink Lungs: Clear to auscultation, Normal air movement Cardiovascular: Regular rate, Normal S1, Normal S2, Gallops, Rubs Extremities: Other (Flank pain) Neuro: Cranial nerves 3-12 NL Psych/Mental Status: Mental status NL Medications Current Medications Medications Dose Ordered Sig/Terence Route Start Time Stop Time Status Last Admin Dose Admin Acetaminophen 650 mg Q6HP PRN PO 10/05/24 21:45 10/06/24 10:15 650 MG Pantoprazole Sodium 40 mg DAILY IV 10/06/24 10:00 10/07/24 09:28 40 MG Sodium Chloride 1,000 ml @ 125 mls/hr Q8H IV 10/05/24 22:30 10/07/24 06:30 125 MLS/HR Ceftriaxone Sodium 50 ml @ 100 mls/hr DAILY@0000 IV 10/07/24 00:00 10/07/24 00:00 100 MLS/HR Ibuprofen 800 mg Q8HP PRN PO 10/06/24 16:30 10/07/24 17:49 800 MG Laboratory Results Laboratory Tests 10/05/24 18:14 Urinalysis Test 10/05/24 17:35 Urine Color Colorless (Yellow) Urine Clarity Turbid (Clear) H Urine pH 6.0 (5.0-9.0) Urine Specific [place] 1.015 (1.001-1.035) Urine Protein Trace (Negative) H Urine Ketones Negative (Negative) Urine Blood 3+ /uL (Negative) H Urine Nitrite Negative (Negative) Urine Bilirubin Negative (Negative) Urine Urobilinogen Normal mg/dL (Negative) Urine Leukocyte Esterase 1+ /uL (Negative) Urine RBC 1328 /hpf (0 - 4) Urine Microscopic WBC 20 /HPF (0-5) H Urine Squamous Epithelial Cells Few /hpf (<5) Urine Bacteria None seen /hpf (None Seen) Urine Glucose Normal mg/dL (Normal) Labs and/or images reviewed: Labs reviewed by me Assessment/Plan Assessment/Plan 4-5 mm blader stone near distal left ureteral calculus Acute complicated UTI Hepatic steatosis Continuing current management. Continuing with IV fluid. The patient had finished a dose of IV mannitol. Urology consulted. Continuing pain medication. Continuing with IV antibiotic. Plan discussed with: Patient My Orders Orders - JAMIE DOWNEY MD Procedure Category Date Status Time Discharge DISCHARGE 10/07/24 Transmitted 17:48 Communication Order ORDERS 10/07/24 Transmitted 18:23 Date of Service: Oct 06, 2024 Billing Provider: JAMIE DOWNEY MD Common Visit Codes: [id number] INP/OBS CARE(HIGH) JAMIE DOWNEY MD Oct 07, 2024 19:57
--- NOTE | 2024-10-07 19:58 | DVHPN2 ---
Eyes: No Pain, No Vision change, No Conjunctivae inflammation, No Eyelid inflammation, No Other, No Redness ENT: No Ear pain, No Ear discharge, No Nose pain, No Nose discharge, No Nose congestion, No Mouth pain, No Mouth swelling; Throat pain; No Throat swelling, No Other Cardiovascular: No Chest Pain, No Palpitations, No Orthopnea, No Paroxysmal Noc. Dyspnea, No Edema, No Lt Headedness, No Other Respiratory: No Cough, No Dry; Shortness of breath; No SOB with excertion, No Wheezing, No Hemoptysis, No Pleuritic Pain, No Sputum, No Other Gastrointestinal: No Nausea, No Vomiting, No Abdominal Pain, No Diarrhea, No Constipation, No Melena, No Hematochezia, No Other Genitourinary: No Dysuria; Frequency; No Incontinence, No Hematuria, No Retention, No Other Musculoskeletal: No other, No neck pain, No shoulder pain, No arm pain, No back pain, No hand pain, No leg pain, No foot pain Skin: No Rash, No Lesions, No Jaundice, No Bruising, No Other Objective Vitals Vital Signs Date Time Temp Pulse Resp B/P (MAP) Pulse Ox O2 Delivery O2 Flow Rate FiO2 10/07/24 18:44 36.3 10/07/24 17:00 87 17 110/60 (77) 97 10/07/24 07:30 Room Air* 0 21 Intake/Output Intake and Output 10/07/24 07:00 Intake Total 2860 ml Balance 2860 ml Intake Oral 2010 ml IV Total 850 ml # Voids 4 Medications Current Medications Medications Dose Ordered Sig/Terence Route Start Time Stop Time Status Last Admin Dose Admin Acetaminophen 650 mg Q6HP PRN PO 10/05/24 21:45 10/06/24 10:15 650 MG Pantoprazole Sodium 40 mg DAILY IV 10/06/24 10:00 10/07/24 09:28 40 MG Sodium Chloride 1,000 ml @ 125 mls/hr Q8H IV 10/05/24 22:30 10/07/24 06:30 125 MLS/HR Ceftriaxone Sodium 50 ml @ 100 mls/hr DAILY@0000 IV 10/07/24 00:00 10/07/24 00:00 100 MLS/HR Ibuprofen 800 mg Q8HP PRN PO 10/06/24 16:30 1/26/25 17:49 800 MG Laboratory Results Laboratory Tests 10/05/24 18:14 Urinalysis Test 10/05/24 17:35 Urine Color Colorless (Yellow) Urine Clarity Turbid (Clear) H Urine pH 6.0 (5.0-9.0) Urine Specific [place] 1.015 (1.001-1.035) Urine Protein Trace (Negative) H Urine Ketones Negative (Negative) Urine Blood 3+ /uL (Negative) H Urine Nitrite Negative (Negative) Urine Bilirubin Negative (Negative) Urine Urobilinogen Normal mg/dL (Negative) Urine Leukocyte Esterase 1+ /uL (Negative) Urine RBC 1328 /hpf (0 - 4) Urine Microscopic WBC 20 /HPF (0-5) H Urine Squamous Epithelial Cells Few /hpf (<5) Urine Bacteria None seen /hpf (None Seen) Urine Glucose Normal mg/dL (Normal) Assessment/Plan My Orders Orders - JAMIE DOWNEY MD Procedure Category Date Status Time Discharge DISCHARGE 10/07/24 Transmitted 17:48 Communication Order ORDERS 10/07/24 Transmitted 18:23 JAMIE DOWNEY MD Oct 07, 2024 19:58
== END 2024-10-07 20:40 | disposition home or self-care (01) | DRG 463 ==
LOC: ER 17:18 → OVERFLOW 21:45 → EAST 21:47
PROVIDERS: ADMIT Internal Medicine; ATTEND Internal Medicine
DX: N39.0 Urinary tract infection, site not specified (principal); N20.1 Calculus of ureter; K76.0 Fatty (change of) liver, not elsewhere classified; K80.20 Calculus of gallbladder without cholecystitis without obstruction; Z20.822 Contact with and (suspected) exposure to COVID-19; I87.8 Other specified disorders of veins; Z82.49 Family history of ischemic heart disease and other diseases of the circulatory system; Z98.891 History of uterine scar from previous surgery
CPT/HCPCS: 36415; 71045; 74176; 76705; 80053; 80307; 81001; 83690; 85025; 85610; 87426; 87804; G0378; J2405; J2470